=== PATIENT | male | born 1945 | race Caucasian/White ===

== ENCOUNTER 2021-05-14 15:00 | Emergency (ER) | payer OTHER, MEDICARE, SELFPAY ==
[2021-05-14 15:10] VITALS: BP 131/75; PULSE 105; RESP 18; TEMP 36.8; O2SAT 96; BMI 21.6
--- NOTE | 2021-05-14 15:12 | W.ED.FEVER ---
HPI - Fever General: Chief Complaint: Fever Stated Complaint: FEVER, FLU LIKE SYMPTOMS Time Seen by Provider: 05/14/21 15:11 History of Present Illness: Mr. 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 He reports symptom onset approximately 3 AM today. He endorses a history of essentially monthly fevers which he typically associates either with changing his Mcclellan catheter or his chemotherapeutic medication which he takes daily. The last changed his Mcclellan catheter 10 days ago and was concerned that this fever did not improve when he noticed it. T-max at home 102. He denies focal other specific symptoms. Denies any wounds or change in urinary characteristics. Intensity symptoms is moderate. Course has persisted. No other new changes in health, exacerbating, relieving factors identified. Pertinent past history: other Measured temperature: 102 F Exacerbating factors: nothing Relieving factors: nothing Associated symptoms: Reports no associated symptoms Treatments prior to arrival fever: acetaminophen Review of Systems General: Reports: 10 or more systems reviewed and unremarkable except in HPI and below PFSH ED PFSH: Medical History Prostate cancer metastatic to bone Surgical History H/O Spinal surgery Social History Smoking and tobacco status: never smoked Physical Exam Const: COMMON NORMALS: alert GENERAL APPEARANCE: cooperative and well developed OTHER: Nontoxic HENMT: COMMON NORMALS: normocephalic and atraumatic HEAD & SCALP: normocephalic and atraumatic Eye: COMMON NORMALS: conjunctivae normal CONJUNCTIVA: Yes conjunctivae normal SCLERA: sclerae normal Neck/C-Spine: COMMON NORMALS: supple GENERAL: Yes trachea midline Resp: COMMON NORMALS: normal respiratory effort and clear to auscultation bilaterally EFFORT & INSPECTION: Yes able to speak in complete sentences AUSCULTATION: clear to auscultation bilaterally Cardio: COMMON NORMALS: regular rhythm RATE: tachycardic RHYTHM: regular rhythm GI: COMMON NORMALS: Soft to palpation PALPATION: Yes Soft to palpation and No Tenderness to palpation present (GI) PERCUSSION: normal to percussion Extremity: GENERAL: Yes normal exam except as noted and No edema Neuro: SENSORIUM/ORIENTATION: Yes alert and No Orientation impaired OTHER: The patient has 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 Normocytic anemia. Metabolic panel with perhaps mild evidence of dehydration. Urinalysis difficult to interpret in the context of catheter sample, however is nitrate positive and will be treated for urinary tract infection in the context of reported symptoms. Blood cultures obtained and will be followed. - Imaging notable for no lobar consolidation. - Upon serial reexamination after treatment the patient was similar to mildly improved - Based on patient history, evaluation, labs, and imaging as interpreted the most likely cause of the patient's condition is urinary tract infection. Given mild leukocytosis and tachycardia I did offer admission which the patient declined, I did explain the severe limitations due to COVID-19 pandemic which may require patient to remain as an ER hold if admitted. - The results of ED evaluation were discussed with the patient including prescriptions and/or symptomatic cares (if applicable) including appropriate and responsible use, followup plan, and return precautions. The patient verbalized understanding and felt safe for discharge. - Patient discharged in satisfactory condition. Note: Click bubbles or prepopulated celaya in note writing are used for assistance with data collection and billing and are inherently more limited than narrative and other text portions of this note. Please use narrative for additional clinical history and defer to narrative/free test for any case of contradictory information. If information appears in only free text or click bubble it should be considered present or absent as reported. Please contact note process description writer for clarifications of clinical information or contradictory information. MDM is a brief summary, contradictory or erroneous seeming information should be clarified and full note should be reviewed. Vital Signs: Vital signs: Vital Signs Temperature 98.2 F 05/14/21 21:08 Pulse Rate 104 H 05/14/21 21:08 Respiratory Rate 20 H 05/14/21 21:08 Blood Pressure 124/73 05/14/21 21:08 Pulse Oximetry 94 05/14/21 21:08 MDM - Fever Medical Decision Making 75-year-old gentleman on oral chemotherapy for metastatic prostate cancer with chronic catheter use presenting with fever without other symptoms. Patient is nontoxic on exam. Urinalysis will be treated for urinary tract infection and culture followed. Patient desires outpatient management. Discharged in satisfactory condition. Medical Records I reviewed the patient's medical records. Lab Data I reviewed the patient's lab results. : 05/14/21 16:04 05/14/21 17:46 Radiology Impressions Chest X-Ray 05/14/21 15:40 IMPRESSION: 1. Focal areas of linear atelectasis in the RIGHT lung. No pneumonia. 2. There is increased sclerosis within the scapula and some of the posterior RIGHT ribs. 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 Laboratory Results WBC 11.6 10^3/uL (4.0-10.0) H 05/14/21 16:04 RBC 3.76 10^6/uL (4.1-5.3) L 05/14/21 16:04 Hgb 11.6 g/dL (11.7-16.6) L 05/14/21 16:04 Hct 34.6 % (42.0-52.0) L 05/14/21 16:04 MCV 92.0 fl (80-94) 05/14/21 16:04 MCH 30.9 pg (28.0-34.0) 05/14/21 16:04 MCHC 33.5 g/dL (30.0-36.0) 05/14/21 16:04 RDW 14.4 % (12.1-15.1) 05/14/21 16:04 Plt Count 147 10^3/cmm (130-400) 05/14/21 16:04 MPV 10.3 fL (7.4-10.4) 05/14/21 16:04 Neut % (Auto) 84.9 % 05/14/21 16:04 Lymph % (Auto) 4.1 % 05/14/21 16:04 [place] % (Auto) 9.7 % 05/14/21 16:04 Eos % (Auto) 0.0 % 05/14/21 16:04 Baso % (Auto) 0.2 % 05/14/21 16:04 Neut # (Auto) 9.85 10^3/uL (1.8-7.7) H 05/14/21 16:04 Lymph # (Auto) 0.5 10^3/uL (0.8-4.8) L 05/14/21 16:04 [place] # (Auto) 1.1 10^3/uL (0.2-0.9) H 05/14/21 16:04 Eos # (Auto) 0.0 10^3/uL (0.0-0.8) 05/14/21 16:04 Baso # (Auto) 0.0 10^3/uL (0.0-0.1) 05/14/21 16:04 Nucleated RBC % (auto) 0 % 05/14/21 16:04 Nucleated RBCs # 0.0 /100WBC 05/14/21 16:04 Sodium 136 mmol/L (136-145) 05/14/21 17:46 Potassium 3.9 mmol/L (3.5-5.1) 05/14/21 17:46 Chloride 106 mmol/L (98-107) 05/14/21 17:46 Carbon Dioxide 18 mmol/L (22-29) L 05/14/21 17:46 Anion Gap 15.9 (5-19) 05/14/21 17:46 BUN 10 mg/dL (8-23) 05/14/21 17:46 Creatinine 0.4 mg/dL (0.7-1.2) L 05/14/21 17:46 GFR Calculation Not Reportable 05/14/21 17:46 Glucose 111 mg/dL (65-115) 05/14/21 17:46 Calculated Osmolality 282 mOsm/kg (285-295) L 05/14/21 17:46 Calcium 8.7 mg/dL (8.5-10.5) 05/14/21 17:46 Total Bilirubin 0.6 mg/dL (0.15-1.2) 05/14/21 17:46 AST 24 U/L (0-40) 05/14/21 17:46 ALT 9 U/L (0-41) 05/14/21 17:46 Alkaline Phosphatase 158 IU/L (40-130) H 05/14/21 17:46 Total Protein 6.6 g/dL (6.6-8.7) 05/14/21 17:46 Albumin 3.4 g/dL (3.5-5.2) L 05/14/21 17:46 Globulin 3.2 g/dL (1.3-4.6) 05/14/21 17:46 Procalcitonin 0.13 ng/mL (0-0.5) 05/14/21 17:46 TSH 0.88 uIU/mL (0.27-4.20) 05/14/21 17:46 Urine Color Yellow (Yellow) 05/14/21 18:43 Urine Appearance Clear (CLEAR) 05/14/21 18:43 Urine pH 5 (5-7) 05/14/21 18:43 Ur Specific [place] 1.015 (1.005-1.030) 05/14/21 18:43 Urine Protein Neg (Negative) 05/14/21 18:43 Urine Glucose (UA) Norm (Normal) 05/14/21 18:43 Urine Ketones Negative (Negative) 05/14/21 18:43 Urine Blood 2+ (Negative) H 05/14/21 18:43 Urine Nitrate Positive (Negative) H 05/14/21 18:43 Urine Bilirubin Neg (Negative) 05/14/21 18:43 Urine Urobilinogen Norm mg/dL (Negative) 05/14/21 18:43 Ur Leukocyte Esterase 2+ (Negative) H 05/14/21 18:43 Urine RBC 0-4 /hpf (0-2) H 05/14/21 18:43 Urine WBC None /hpf (0-5) 05/14/21 18:43 Ur Squamous Epith Cells 0-4 /hpf (0-5) H 05/14/21 18:43 Amorphous Sediment Not Reportable 05/14/21 18:43 Urine Bacteria Trace /hpf (NONE) 05/14/21 18:43 Hyaline Casts 0-4 /lpf H 05/14/21 18:43 Influenza Type A Ag Negative (Negative) 05/14/21 15:56 Influenza Type B Ag Negative (Negative) 05/14/21 15:56 SARS-CoV-2 Ag (Rapid) Negative (Negative) 05/14/21 15:56 EKG Data EKG 1: I personally reviewed and interpreted this EKG as follows: EKG interpretation date: 05/14/21 EKG interpretation time: 15:58 Interpretation: Twelve-lead EKG shows a regular rhythm at a rate of 112. AK interval 161, QRS duration 81, QTc 401. Normal axis. Interpretation: Sinus tachycardia. Discharge Plan Discharge Patient Disposition: Home Clinical Impression: Urinary tract infection Condition: Stable Prescriptions: New ciprofloxacin HCl 500 mg tablet 500 mg PO BID Qty: 20 0RF Discharge Orders: Discharge ED (Routine); Ordered 05/14/21 Ordered By: Lalo Hadrin Discharge Diet: Usual diet Discharge Activity: Resume usual activity Patient Instructions: Ciprofloxacin (By mouth), Catheter-associated Urinary Tract Infection (ED) Activity Restrictions/Additional Instructions: Thank you for visiting the emergency department. You were seen and evaluated for fever. The exact cause of your symptoms is unclear however there was evidence of urinary tract infection. This will be treated with antibiotics. Please follow-up with your primary care provider. Please return to the emergency department for worsening symptoms or anything else that you are concerned about and feel needs emergency department evaluation. Coding Level of Care Code ED Messenger Office for Lenka Ashley
--- NOTE | 2021-05-14 15:40 | XR_ITS ---
WS: [id number] PORTABLE CHEST HISTORY: fever COMPARISON: None available. Mild eventration of RIGHT hemidiaphragm. Focal linear area of increased density over the lateral mid RIGHT lung. Linear areas of atelectasis or scar in the central RIGHT lung. LEFT lung is well aerated. No pleural effusion or pneumothorax. Cardiac size: Normal. Mediastinum/Aorta: Mild atherosclerosis aorta. Lyons rods are noted within the mid to lower thoracic spine. There are a few sclerotic areas within the bones including the ribs, RIGHT clavicle and scapula. This can be seen with prostate carcinoma. XR/XR chest 1V portable [id number] IMPRESSION: 1. Focal areas of linear atelectasis in the RIGHT lung. No pneumonia. 2. There is increased sclerosis within the scapula and some of the posterior R IGHT ribs. This can be seen with osteoblastic metastatic bone disease from pros ocampo carcinoma.
--- NOTE | 2021-05-14 15:41 | ECG_ITS ---
[facility] Test Date: 2021-05-14 Pat Name: OCTAVIO VERDE Department: Room: Gender: Male Board Design Engineer: : [id number] Requested By: Lalo Hardin Order Number: [id number] Ruddy MD: ARANZA ACOSTA Measurements Intervals [facility] Rate: 112 P: 74 ND: 161 QRS: 71 QRSD: 81 T: 41 QT: 335 QTc: 458 Interpretive Statements SINUS TACHYCARDIA NONSPECIFIC T-WAVE ABNORMALITY ABNORMAL RHYTHM ECG No previous ECG available for comparison Electronically Signed On 05-14-2021 21:47:26 RELAY ADJUSTER by ARANZA ACOSTA [email or web address]
[2021-05-14 15:59] VITALS: BP 115/71; PULSE 111; RESP 21; O2SAT 98
[2021-05-14] MEDS: sodium chloride 0.9% 1,000 ML 999 ML IV (16:05)
[2021-05-14 16:22] LABS: Basophils % 0.2 %; Hematocrit 34.6 % (42.0-52.0); Hemoglobin 11.6 g/dL (11.7-16.6); Lymphocytes # 0.5 10^3/uL (0.8-4.8); Lymphocytes % 4.1 %; Mean Corpuscular HGB Conc 33.5 g/dL (30.0-36.0); Mean Corpuscular Hemoglobin 30.9 pg (28.0-34.0); Mean Platelet Volume 10.3 fL (7.4-10.4); Monocytes # 1.1 10^3/uL (0.2-0.9); Monocytes % 9.7 %; Neutrophils # 9.85 10^3/uL (1.8-7.7); Neutrophils % 84.9 %; Nucleated Red Blood Cells % 0 %; Platelet Count 147 10^3/cmm (130-400); Red Blood Count 3.76 10^6/uL (4.1-5.3); Red Cell Distribution Width 14.4 % (12.1-15.1); White Blood Count 11.6 10^3/uL (4.0-10.0)
[2021-05-14 16:28] VITALS: BP 124/81; PULSE 98; RESP 15; O2SAT 95
[2021-05-14 16:41] LABS: Influenza A by IFA Negative (Negative); Influenza B by IFA Negative (Negative); SARS Covid-2 Antigen Negative (Negative)
[2021-05-14 18:07] VITALS: BP 115/73; PULSE 102; RESP 10; O2SAT 94
[2021-05-14 18:29] LABS: Procalcitonin 0.13 ng/mL (0-0.5)
[2021-05-14 19:35] LABS: Alanine Aminotransferase 9 U/L (0-41); Albumin Level 3.4 g/dL (3.5-5.2); Alkaline Phosphatase 158 IU/L (40-130); Blood Urea Nitrogen 10 mg/dL (8-23); Calcium 8.7 mg/dL (8.5-10.5); Carbon Dioxide 18 mmol/L (22-29); Chloride 106 mmol/L (98-107); Globulin 3.2 g/dL (1.3-4.6); Glucose 111 mg/dL (65-115); Osmolality Calculated 282 mOsm/kg (285-295); Sodium 136 mmol/L (136-145); Thyroid Stimulating Hormone 0.88 uIU/mL (0.27-4.20); Total Bilirubin 0.6 mg/dL (0.15-1.2); Total Protein 6.6 g/dL (6.6-8.7)
[2021-05-14 19:36] LABS: Anion Gap 15.9 (5-19); Potassium 3.9 mmol/L (3.5-5.1)
[2021-05-14 19:37] LABS: Aspartate Amino Transferase 24 U/L (0-40)
[2021-05-14 19:38] VITALS: BP 121/81; PULSE 106; RESP 22; O2SAT 96
[2021-05-14 20:11] LABS: Add Urine Microscopic? YES; Bilirubin Urine Neg (Negative); Blood Urine 2+ (Negative); Glucose Urine UA Norm (Normal); Ketones Urine Negative (Negative); Leukocyte Esterase Urine 2+ (Negative); Nitrate Urine Positive (Negative); Protein Urine Neg (Negative); Specific Gravity, Urine 1.015 (1.005-1.030); Urine Appearance Clear (CLEAR); Urine Color Yellow (Yellow); Urobilinogen Urine Norm (Negative); pH Urine 5 (5-7)
[2021-05-14 20:13] LABS: Bacteria Urine TRACE /hpf; Hyaline Casts Urine 0-4 /lpf; RBC Urine 0-4 /hpf (0-2); Squamous Epithelial Cell Urine 0-4 /hpf (0-5)
[2021-05-14] MEDS: ciprofloxacin 500 mg Tablet PO (20:38)
[2021-05-14 21:08] VITALS: BP 124/73; PULSE 104; RESP 20; TEMP 36.8; O2SAT 94
== END 2021-05-14 21:09 | disposition home or self-care (01) ==
PROVIDERS: Emergency Provider Emergency Medicine
DX: N39.0 Urinary tract infection, site not specified (principal); Z85.46 Personal history of malignant neoplasm of prostate; Z85.830 Personal history of malignant neoplasm of bone; Z20.822 Contact with and (suspected) exposure to COVID-19
CPT/HCPCS: 71045; 80053; 81001; 84145; 84443; 85025; 87040; 87077; 87086; 87186; 87426; 87804; 93005; 96360; 99284; J7030